=== PATIENT | male | born 1990 | race Caucasian/White ===

== ENCOUNTER 2020-07-09 11:36 | Outpatient (REF) | payer OTHER, SELFPAY ==
--- NOTE | ~2020-07-09 | XR_ITS ---
EXAMINATION: BILATERAL FOOT X-RAY CLINICAL INFORMATION: Pain COMPARISON: Bilateral ankle x-rays August 2018 TECHNIQUE: 3 views each foot FINDINGS: Bone alignment is normal. No fracture or dislocation seen. There are bilateral talar beaks. No evidence of bony coalition is seen. There is also a small osteophyte projecting off the dorsal surface of navicular bone at the talar navicular joint. Joint spaces are otherwise normal. Soft tissues are normal. XR/XR foot LT min 3V IMPRESSION: Bilateral talar beaks. No evidence of bony coalition seen. There is clinical suspicion of fibrous coalition, this could be better evaluated with MRI.
--- NOTE | ~2020-07-09 | XR_ITS ---
EXAMINATION: BILATERAL FOOT X-RAY CLINICAL INFORMATION: Pain COMPARISON: Bilateral ankle x-rays August 2018 TECHNIQUE: 3 views each foot FINDINGS: Bone alignment is normal. No fracture or dislocation seen. There are bilateral talar beaks. No evidence of bony coalition is seen. There is also a small osteophyte projecting off the dorsal surface of navicular bone at the talar navicular joint. Joint spaces are otherwise normal. Soft tissues are normal. XR/XR foot RT min 3V IMPRESSION: Bilateral talar beaks. No evidence of bony coalition seen. There is clinical suspicion of fibrous coalition, this could be better evaluated with MRI.
== END 2020-07-09 11:37 | disposition home or self-care (01) ==
LOC: HO.LAB 11:36
PROVIDERS: PCP Internal Medicine; Visit Provider Internal Medicine
DX: G89.29 Other chronic pain (principal); M79.672 Pain in left foot; M79.671 Pain in right foot
CPT/HCPCS: 73630

== ENCOUNTER 2021-02-22 09:24 | Outpatient (AMB) | payer OTHER, SELFPAY ==
--- NOTE | 2021-02-22 09:21 | A.OFFPC_ITS ---
Intake Visit Reasons: Leg pain Child Care Assistant Required: No Accompanied by: Self / Same As Patient Allergies acetaminophen [ACETAMINOPHEN] Allergy (Unknown, Verified 08/20/23 15:14) PALPATATIONS azithromycin [AZITHROMYCIN] Allergy (Unknown, Verified 08/20/23 15:14) RASH LOBSTER Allergy (Unknown, Verified 08/20/23 15:14) RASH, swelling Medication List - Last Reconciled 02/22/21 by Mike Benito MD blood sugar diagnostic (FreeStyle Lite Strips) 1 strip miscellaneous DAILY docusate sodium 100 mg PO DAILY 30 days PRN famotidine 20 mg PO BID 30 days PRN fluticasone propionate 50 mcg/actuation 2 sprays intranasal DAILY 30 days PRN hydroxyzine HCl 25 mg PO TID PRN ibuprofen 600 mg PO Q8H PRN mometasone 0.1% 1 appl topical DAILY 30 days omeprazole 20 mg PO DAILY 30 days tramadol 50 mg PO 2-3 x a day PRN; partial refil upon request #75- 30 days zolpidem 10 mg PO BEDTIME 30 days PRN Tobacco use date assessed: 01/11/21 HPI Leg pain HPI Details Due to the COVID-19 pandemic, we are limiting [id number]-gr-dcpb visits to patients who have an absolute need for such visits Patient's follow up visit / consultation today is done over video conference ([email or web address]) - this is a TELEHEALTH visit Patient's current medications have been reviewed and verified with patient and/or caregiver/proxy and have been updated accordingly in the medication list Patient states that he feels okay Reports that the previous swelling of his legs and feet have improved a lot when he started cutting out salt/sodium from his diet and that his swelling are mostly resolved now Has also been able to lose some weight recently as he has been eating a lot more vegetables and eliminating fried foods from his diet - weighed 248 pounds earlier today Is eating more yogurt lately and states that this has helped a lot with his b owels Denies any headaches or dizziness Denies any chest pains, no SOB although he has been coughing on and off lately - cough is mostly dry; denies any sore throat No nausea/vomiting, no abdominal pain Needs his Mometasone cream Rx refilled Would also like to get some Rx for his recurrent cough and increased phlegm lately States that he went to get labs done at [facility] a couple of months ago but no r esults are noted in his chart (last ones were in 2019) - advised that his previous lab orders are still in his chart and if he did have some labs done a couple of months ago, we do not know where the results are or which lab orders were used for that particular lab draw [facility] Medical History (Updated 08/20/23 @ 15:57 by Mike Benito MD) Morbid obesity with BMI of 45.0-49.9, adult Obesity (BMI 30-39.9) Insomnia Allergic rhinitis GERD without esophagitis Benign essential hypertension Smoker Bipolar disorder Chronic pain of both feet Chronic hip pain Anxiety Surgical History History of tooth extraction History of hip surgery History of hemorrhoidectomy Family History Father Diabetes Mother Chronic mental illness Maternal Grandmother Diabetes Maternal Grandfather Diabetes Maternal Aunt Diabetes Sister In good health Other Mental health problem Social History Housing: House Alcohol intake: never Patient Tobacco Use Status: Current someday Tobacco user Tobacco use type: Cigarette Cigarette Packs Per Day: 0.25 Cigarettes Per Day: 2 e-Cigarette/Vaping Use: Never Used Second Hand Smoke Exposure: Yes service: No Current occupational status: employed Cognitive needs: No Hearing needs: No Vision needs: No Questionnaire Thrive Questionnaire Date Thrive assessed: 01/11/21 DAVID-7 AMB Questionnaire DAVID-7 Date DAVID - 7 assessed: 01/11/21 Source: Developed by Drs. Wilton Martinez, Kenyetta Ocampo, Mateo Jaramillo and colleagues, with an educational esther from [employer]. Review of Systems Const Denies chills, Reports fatigue, Denies fever(s) and Denies headache(s) ENT Denies headache(s), Denies odynophagia, Denies sinus pain and Denies sore throat Card Denies chest pain, Denies palpitations and Denies dyspnea Resp Denies chest congestion, Reports cough (recurrent, non-productive) and Denies dyspnea GI Denies abdominal pain, Denies constipation, Denies heartburn, Denies diarrhea and Denies odynophagia Denies dysuria and Denies nocturia Musc Reports arthralgias (both hips) and Denies joint swelling Skin/Breast Reports rash (scattered, on and off, itchy at times) Neuro Denies headache(s) Endo Reports fatigue and Denies palpitations Physical exam (Primary Care) Vital Signs: Physical examination is not performed as visit / consultation today is done over videoconference - Telehealth visit All physical findings indicated here, if present, are as per patient's and / or caregivers / proxy's report and visual inspection over videoconference, if appropriate or applicable Tobacco/Smoking Status: Tobacco use Status Tobacco use date assessed 01/11/21 02/22/21 09:24 Patient Tobacco Use Status Current everyday Tobacco 02/22/21 09:24 Thrive Assessment: Date of Thrive Assessment Date Thrive assessed 01/11/21 02/22/21 09:24 Telehealth Telehealth Location of provider rendering services: practice address Location of patient: address on file Patient Identification confirmed using: Name, : Yes Telehealth method: video Patient verbally consented to treatment: No Patient verbally consented to billing insurance company: No Patient informed of any privacy concerns related to visit: No Time spent with patient (mins): 24 Assessment and Plan Assessment & Plan (1) Benign essential hypertension: Code(s): I10 - Essential (primary) hypertension Plan: Reinforced low sodium diet - goal is systolic BP of at least 120 to 130 mm Instructed to continue monitoring his BP regularly Patient is also instructed to try getting his previously ordered labs (updated) done TIERNEY (2) GERD without esophagitis: Code(s): K21.9 - Gastro-esophageal reflux disease without esophagitis Plan: Dietary restrictions reinforced Continue Omeprazole 20 mg QD and Famotidine 20 mg BID PRN (3) Allergic rhinitis: Code(s): J30.9 - Allergic rhinitis, unspecified Qualifiers: Allergic rhinitis seasonality: unspecified Allergic rhinitis trigger: unspecified Qualified Code(s): J30.9 - Allergic rhinitis, unspecified Plan: Continue Fluticasone 50 mcg nasal spray QD PRN (4) Multiple episodes of hypoglycemia: Code(s): E16.2 - Hypoglycemia, unspecified Plan: Are most likely due to his psychiatric Rx although this seems to have subsided somewhat lately - the atypical antipsychotics do have hypoglycemia as known side effects and patient should discuss potential Rx changes with his psychiatrist if f symptoms persist (5) Chronic hip pain: Comment: S/P surgical pinning of both hips with 65 mm 7.0 Senthes cannulated screws in 2005 Code(s): M25.559 - Pain in unspecified hip; G89.29 - Other chronic pain Qualifiers: Laterality: bilateral Qualified Code(s): M25.551 - Pain in right hip; M25.552 - Pain in left hip; G89.29 - Other chronic pain Plan: Continue Tramadol 50 mg TID PRN and Ibuprofen 600 mg q 8 hours PRN for pain Follow up with orthopedics as scheduled (6) Rash: Code(s): R21 - Rash and other nonspecific skin eruption Plan: Will start him for now on Mometasone 0.1% cream QD PRN (7) Lymphedema: Code(s): I89.0 - Lymphedema, not elsewhere classified Plan: This appears to have improved lately since he started cutting out all salt from his diet - he is instructed to continue on low salt/sodium diet and elevate his legs and feet as often as he can throughout the day (8) Recurrent nonproductive cough: Code(s): R05.8 - Other specified cough Plan: Advised that this is likely related to his smoking Will start him for now on Mucinex DM Q 12 hours PRN May need to get chest x-rays done if his recurrent cough persists (9) Insomnia: Code(s): G47.00 - Insomnia, unspecified Qualifiers: Insomnia type: unspecified Qualified Code(s): G47.00 - Insomnia, unspecified Plan: Sleep hygiene reinforced Continue Zolpidem 10 mg Q HS PRN (10) Anxiety: Code(s): F41.9 - Anxiety disorder, unspecified Plan: Continue Hydroxyzine 25 mg TID PRN (11) Bipolar disorder: Code(s): F31.9 - Bipolar disorder, unspecified Qualifiers: Active/Remission status: currently active Current bipolar episode type: mixed Current episode severity: unspecified Qualified Code(s): F31.60 - Bipolar disorder, current episode mixed, unspecified Plan: Continue Risperidone 1 mg Q HS Follow up with psychiatry as scheduled (12) Smoker: Code(s): F17.200 - Nicotine dependence, unspecified, uncomplicated Plan: Counseled agaion on smoking cessation (13) Morbid obesity with BMI of 45.0-49.9, adult: Code(s): E66.01 - Morbid (severe) obesity due to excess calories; Z68.42 - Body mass index [BMI] 45.0-49.9, adult Plan: Reinforced diet/exercise as tolerated/lose weight Plan Follow up in 3 months Medications: New dextromethorphan-guaifenesin 30-600 mg (Mucinex DM) 1 tab PO Q12H PRN 60 tabs 1RF cough 30 days Refilled mometasone 0.1% 1 appl topical DAILY 45 grams 2RF 30 days Coding Level of Care Code Tele Est Pt Level 4 (67387) Diagnoses Benign essential hypertension I10 GERD without esophagitis K21.9 Allergic rhinitis, unspecified seasonality, unspecified trigger J30.9 Allergic rhinitis seasonality: unspecified Allergic rhinitis trigger: unspecified Multiple episodes of hypoglycemia E16.2 Chronic pain of both hips M25.551; M25.552; G89.29 Laterality: bilateral Rash R21 Lymphedema I89.0 Recurrent nonproductive cough R05.8 Insomnia, unspecified type G47.00 Insomnia type: unspecified Anxiety F41.9 Bipolar affective disorder, current episode mixed, current episode severity unspecified F31.60 Active/Remission status: currently active Current bipolar episode type: mixed Current episode severity: unspecified Smoker F17.200 Morbid obesity with BMI of 45.0-49.9, adult E66.01; Z68.42
== END 2021-02-22 12:42 ==
LOC: HO.HMGH 09:24
PROVIDERS: PCP Internal Medicine; Visit Provider Internal Medicine
DX: I10 Essential (primary) hypertension (principal); F31.60 Bipolar disorder, current episode mixed, unspecified; E66.01 Morbid (severe) obesity due to excess calories; Z68.42 Body mass index [BMI] 45.0-49.9, adult; K21.9 Gastro-esophageal reflux disease without esophagitis; J30.9 Allergic rhinitis, unspecified; E16.2 Hypoglycemia, unspecified; M25.551 Pain in right hip; M25.552 Pain in left hip; G89.29 Other chronic pain; R21 Rash and other nonspecific skin eruption; I89.0 Lymphedema, not elsewhere classified
CPT/HCPCS: 99499

== ENCOUNTER 2023-08-20 14:26 | Outpatient (AMB) | payer OTHER, SELFPAY ==
--- NOTE | 2023-08-20 14:42 | A.OFFPC_ITS ---
Vital Signs 08/20/23 14:45 Height 5 ft 7 in Weight 290 lb 8 oz BMI 45.5 BP 130/72 Blood Pressure Location Lt brachial Position Sitting Pulse 70 Pulse Source Pulse Oximeter Pulse Oximetry (%) 98 Oxygen Delivery Method Room Air Intake Visit Reasons: P.E Intake Note: Patient is here today for a physical. Line Service Attendant Required: No Lacquerer: Not Required per policy Accompanied by: Self / Same As Patient Allergies acetaminophen [ACETAMINOPHEN] Allergy (Unknown, Verified 08/20/23 15:14) PALPATATIONS azithromycin [AZITHROMYCIN] Allergy (Unknown, Verified 08/20/23 15:14) RASH LOBSTER Allergy (Unknown, Verified 08/20/23 15:14) RASH, swelling Medication List - Last Reconciled 08/20/23 by Mike Benito MD blood sugar diagnostic (FreeStyle Lite Strips) 1 strip miscellaneous DAILY dextromethorphan-guaifenesin 30-600 mg (Mucinex DM) 1 tab PO Q12H PRN 30 days docusate sodium 100 mg PO DAILY PRN 90 days famotidine 20 mg PO BID PRN 90 days fluticasone propionate 50 mcg/actuation 2 sprays intranasal DAILY PRN 30 days hydroxyzine HCl 25 mg PO TID PRN ibuprofen 600 mg PO Q8H PRN 30 days mometasone 0.1% 1 appl topical DAILY 30 days omeprazole 20 mg PO DAILY 90 days tramadol 50 mg PO 2-3 x a day PRN; partial refil upon request #75- 30 days zolpidem 10 mg PO BEDTIME PRN 30 days Tobacco use date assessed: 08/20/23 Dental Screening Dental Screen Date: 08/20/23 Did you have a dental visit in the last 12 months?: No Did you have a dental problem in the last 6 months where you did not have access to dental care?: No Was dental information given to patient?: Patient has dentist HPI P.E HPI Details Patient comes in today for his annual physical examination - has not been back in about 2 years (July 2021) States that he continues to experience recurrent swelling of both of his ankles frequently Notes that the swelling seems to occur only over the lateral aspect of both ankles and relates increased pain when the swelling is present States that he feels okay otherwise and states that he has changed his diet a lot over the past year or so and feels that he is starting to lose weight as his clothes and pants have all gotten looser lately Relates increased pain over both hips lately - denies any recent injury or trauma to his hips He denies any headaches or dizziness Denies any chest pains, no SOB No nausea/vomiting, no abdominal pain No change in bowel habits noted He denies any acute urinary symptoms States that he will need ALL of his Rx, including his Tramadol and Zolpidem, refilled [facility] Medical History (Updated 08/20/23 @ 15:50 by Mike Benito MD) Morbid obesity with BMI of 45.0-49.9, adult Obesity (BMI 30-39.9) Insomnia Allergic rhinitis GERD without esophagitis Benign essential hypertension Smoker Bipolar disorder Chronic pain of both feet Chronic hip pain Anxiety Surgical History History of tooth extraction History of hip surgery History of hemorrhoidectomy Family History Father Diabetes Mother Chronic mental illness Maternal Grandmother Diabetes Maternal Grandfather Diabetes Maternal Aunt Diabetes Sister In good health Other Mental health problem Social History Housing: House Alcohol intake: never Patient Tobacco Use Status: Current someday Tobacco user Tobacco use type: Cigarette Cigarette Packs Per Day: 0.25 Cigarettes Per Day: 2 e-Cigarette/Vaping Use: Never Used Second Hand Smoke Exposure: Yes service: No Current occupational status: employed Cognitive needs: No Hearing needs: No Vision needs: No Questionnaire PHQ-9 Over the last 2 weeks, how often have you been bothered by any of the following problems? 1. Little interest or pleasure in doing things: not at all 2. Feeling down, depressed, or hopeless: not at all 3. Trouble falling or staying asleep, or sleeping too much: not at all 4. Feeling tired or having little energy: not at all 5. Poor appetite or overeating: not at all 6. Feeling bad about yourself - or that you are a failure or have let yourself or your family down: not at all 7. Trouble concentrating on things, such as reading the newspaper or watching television: not at all 8. Moving or speaking so slowly that other people could have noticed. Or the opposite - being so fidgety or restless that you have been moving around a lot more than usual: not at all 9. Thoughts that you would be better off or of hurting yourself in some way: not at all Total score: 0 Depression Screening Interpretation: Negative Depression Screening Done: Yes 71609 - PHQ-9 Billing: Yes Source: Developed by Drs. Wilton Martinez, Kenyetta Ocampo, Mateo Jaramillo and colleagues, with an educational esther from [employer]. Thrive Questionnaire Date Thrive assessed: 08/20/23 I am a: Patient What is your living situation today?: I have a steady place to live Within the past 12 months, did the food you bought not last and you didn't have the money to get more?: Never true Within the past 12 months, did you worry whether your food would run out before you got money to buy more?: Never true Do you have trouble paying for medicines?: No Do you have trouble getting transportation to medical appointments?: No Do you have trouble paying your heating and electricity bill?: No Do you have trouble taking care of your child, family member or friend?: No Do you have trouble with day-to-day activities such as bathing, preparing meals, shopping, managing finances, etc.?: No Are you currently unemployed and looking for a job?: No Are you interested in more education?: No Currently or been in a relationship where the following occur: no concerns r eported THRIVE Score: 0 AUDIT C Alcohol Use Questionnaire (AUDIT-C) 1. How often do you have a drink containing alcohol?: Never 3. How often do you have six or more drinks on one occasion?: Never Total Score: 0 Score Reviewed/Action Taken: Yes DAVID-7 AMB Questionnaire DAVID-7 Date DAVID - 7 assessed: 08/20/23 Feeling nervous, anxious, or on edge: 1 = Several days Not being able to stop or control worryin = Not at all Worrying too much about different things: 0 = Not at all Trouble relaxin = Not at all Being so restless that it is hard to sit still: 0 = Not at all Becoming easily annoyed or irritable: 0 = Not at all Feeling afraid as if something awful might happen: 0 = Not at all Total DAVID-7 score (0-4 normal; 5-9 mild; 10-14 moderate; 15-21 severe): 1 Source: Developed by Drs. Wilton Martinez, Kenyetta Ocampo, Mateo Jaramillo and colleagues, with an educational esther from [employer]. Review of Systems Const Denies chills, Reports difficulty sleeping (Zolpidem Rx helps with his sleep), Denies fatigue, Denies fever(s), Denies headache(s), Denies malaise and Denies weakness Eyes Denies blurry vision, Denies change in vision, Denies irritation and Denies itchy eyes ENT Denies dysphagia, Denies dizziness, Denies otalgia, Denies headache(s), Denies nasal congestion, Denies neck pain, Denies odynophagia and Denies sore throat Card Denies chest pain, Denies rapid heart rate, Denies irregular heart rhythm, Denies palpitations and Denies dyspnea Resp Denies chest congestion, Denies cough, Denies dyspnea and Denies wheezing GI Denies abdominal pain, Denies bloating, Denies constipation, Denies dysphagia, Denies heartburn, Denies diarrhea, Denies nausea, Denies odynophagia and Denies vomiting Denies hematuria, Denies difficulty urinating, Denies dysuria, Denies urinary frequency and Denies urinary urgency Musc Denies back pain, Reports arthralgias (both ankles but only when they are swollen; both hips lately), Reports joint swelling (recurrent over both ankles, mostly over the lateral aspect), Denies muscle weakness and Denies neck pain Skin/Breast Denies change in pigmentation, Denies lesions, Denies rash and Denies unusual bruising Neuro Denies dizziness, Denies headache(s), Denies paresthesias and Denies weakness Endo Denies fatigue and Denies palpitations Aller/Immun Denies itchy eyes and Denies wheezing Physical exam (Primary Care) Vital Signs: Last Vital Signs Pulse 70 08/20/23 14:45 BP 130/72 08/20/23 14:45 Pulse Ox 98 08/20/23 14:45 Oxygen Delivery Method Room Air 08/20/23 14:45 BMI result Body Mass Index 45.5 Tobacco/Smoking Status: Tobacco use Status Tobacco use date assessed 08/20/23 08/20/23 14:55 Patient Tobacco Use Status Current someday Tobacco 08/20/23 14:55 Tobacco use type Cigarette 08/20/23 14:55 e-Cigarette/Vaping Use Never Used 08/20/23 14:55 PHQ-9: PHQ-9 Score PHQ-9: Total score 0 08/20/23 14:55 Depression Screening Interpretation: Negative Thrive Assessment: Date of Thrive Assessment Date Thrive assessed 08/20/23 08/20/23 14:55 Currently or been in a relationship where the following occur: no concerns reported Const General: no acute distress, alert and awake Orientation/consciousness: patient oriented x3 HENMT Head: Yes normocephalic and Yes atraumatic Ears: external ears normal, TM's normal bilaterally and EAC's normal General nose exam: No nasal discharge present Face and sinus: Yes normal facial exam and Yes sinuses nontender Teeth and gingiva: dentition normal Throat: Yes posterior oropharynx normal and Yes tonsils normal (no TP congestion) Eyes Eyelids: Yes eyelids normal Conjunctivae: conjunctivae normal Pupils: Equal, round and reactive pupils present EOM: EOMs intact bilaterally Neck Neck: Yes no lymphadenopathy and Yes supple Thyroid: Thyroid normal Resp Auscultation: clear to auscultation bilaterally, no rales and no wheezes Cardio Rate: regular rate Rhythm: regular rhythm Heart sounds: no murmurs GI Palpation (GI): Soft to palpation, nontender and No hepatosplenomegaly present Auscultation: normal bowel sounds General: Yes no CVA tenderness Back/Spine/Pelvis Back: no CVA tenderness Thoracic/Lumbar Spine: thoracic and lumbar spine normal to inspection Skin Lesions: no lesions Rashes: no rashes Neuro General: patient oriented x3, moves all extremities, no focal motor deficits and CN's II-XI intact bilaterally Cranial nerves: Yes Equal, round and reactive pupils present Cognition (Neuro): normal cognition Gait exam (Neuro): Normal gait present Extrem General: Yes no clubbing, cyanosis or edema Right lower extremity: hip/thigh Details: tenderness Location: of the hip and ankle Details: no tenderness and no swelling Left lower extremity: hip/thigh Details: tenderness Location: of the hip and ankle Details: no tenderness and no swelling Assessment and Plan Assessment & Plan (1) Annual physical exam: Code(s): Z00.00 - Encounter for general adult medical examination without abnormal findings Plan: Check labs (2) Chronic hip pain: Comment: S/P surgical pinning of both hips with 65 mm 7.0 Senthes cannulated screws in 2005 Code(s): M25.559 - Pain in unspecified hip; G89.29 - Other chronic pain Qualifiers: Laterality: bilateral Qualified Code(s): M25.551 - Pain in right hip; M25.552 - Pain in left hip; G89.29 - Other chronic pain Plan: Will send for repeat x-rays of both hips for further evaluation/follow up Continue Tramadol 50 mg TID PRN and Ibuprofen 600 mg Q 8 hours PRN for pain Follow up with orthopedics as scheduled (3) Pain and swelling of ankle: Comment: bilateral Code(s): M25.579 - Pain in unspecified ankle and joints of unspecified foot; M25.473 - Effusion, unspecified ankle Qualifiers: Laterality: unspecified laterality Qualified Code(s): M25.579 - Pain in unspecified ankle and joints of unspecified foot; M25.473 - Effusion, unspecified ankle Plan: Will send for x-rays of both ankles for further evaluation Will also send for some labs for further evaluation (4) Elevated blood pressure reading: Code(s): R03.0 - Elevated blood-pressure reading, without diagnosis of hypertension Plan: Reinforced low sodium diet Patient is reminded to continue monitoring his blood pressure regularly - normal systolic BP is at 120 mm or less (5) GERD without esophagitis: Code(s): K21.9 - Gastro-esophageal reflux disease without esophagitis Plan: Dietary restrictions reinforced Continue Omeprazole 20 mg QD and Famotidine 20 mg BID PRN (6) Allergic rhinitis: Code(s): J30.9 - Allergic rhinitis, unspecified Qualifiers: Allergic rhinitis trigger: unspecified Allergic rhinitis seasonality: unspecified Qualified Code(s): J30.9 - Allergic rhinitis, unspecified Plan: Continue Fluticasone 50 mcg nasal spray QD PRN (7) Varicose veins of bilateral lower extremities with pain: Code(s): I83.813 - Varicose veins of bilateral lower extremities with pain Plan: Follow up with vascular surgery as scheduled (8) Insomnia: Code(s): G47.00 - Insomnia, unspecified Qualifiers: Insomnia type: unspecified Qualified Code(s): G47.00 - Insomnia, unspecified Plan: Sleep hygiene reinforced Continue Zolpidem 10 mg Q HS PRN (9) Anxiety: Code(s): F41.9 - Anxiety disorder, unspecified Plan: Continue Hydroxyzine 25 mg TID PRN (10) Bipolar disorder: Code(s): F31.9 - Bipolar disorder, unspecified Qualifiers: Active/Remission status: currently active Current bipolar episode type: mixed Current episode severity: unspecified Qualified Code(s): F31.60 - Bipolar disorder, current episode mixed, unspecified Plan: He was on Risperidone 1 mg Q HS in the past but appears to be off the Rx at this time Follow up with psychiatry as scheduled (11) Smoker: Code(s): F17.200 - Nicotine dependence, unspecified, uncomplicated Plan: Counseled again on smoking cessation (12) Morbid obesity with BMI of 45.0-49.9, adult: Code(s): E66.01 - Morbid (severe) obesity due to excess calories; Z68.42 - Body mass index [BMI] 45.0-49.9, adult Plan: Reinforced diet/exercise as tolerated/lose weight Plan Follow up in 4 months Orders: Orders Complete Blood Count Auto Diff Today D64.9 - Anemia, unspecified, Z00.00 - En counter for general adult medical examination without abnormal findings TSH reflex Free T4 Today E78.00 - Pure hypercholesterolemia, unspecified, Z00.00 - Encounter for general adult medical examination without abnormal findings UA CC w/rflx Micro + Cult Today R30.0 - Dysuria, Z00.00 - Encounter for general adult medical examination without abnormal findings XR ankle LT min 3V Today M25.473 - Effusion, unspecified ankle, M25.579 - Pain in unspecified ankle and joints of unspecified foot B Type Natriuretic Peptide Today M25.473 - Effusion, unspecified ankle, M25.579 - Pain in unspecified ankle and joints of unspecified foot Comprehensive Rosine. Panel Fast Today E78.00 - Pure hypercholesterolemia, unspecified, Z00.00 - Encounter for general adult medical examination without abnormal findings Lipid Panel Today E78.00 - Pure hypercholesterolemia, unspecified, Z00.00 - Encounter for general adult medical examination without abnormal findings Erythrocyte Sedimentation Rate Today G89.29 - Other chronic pain, M79.671 - Pain in right foot, M79.672 - Pain in left foot, Z00.00 - Encounter for general adult medical examination without abnormal findings Hemoglobin A1c Today E11.9 - Type 2 diabetes mellitus without complications, Z00.00 - Encounter for general adult medical examination without abnormal findings Vitamin D 25-OH Total Today E55.9 - Vitamin D deficiency, unspecified, Z00.00 - Encounter for general adult medical examination without abnormal findings XR ankle RT min 3V Today M25.473 - Effusion, unspecified ankle, M25.579 - Pain in unspecified ankle and joints of unspecified foot XR hip LT min 2V Today M25.551 - Pain in right hip, M25.552 - Pain in left hip XR hip RT min 2V Today M25.551 - Pain in right hip, M25.552 - Pain in left hip C Reactive Protein Today M25.473 - Effusion, unspecified ankle, M25.579 - Pain in unspecified ankle and joints of unspecified foot Medications: Refilled zolpidem 10 mg PO BEDTIME 30 days PRN 30 tabs 0RF insomnia G47.00 - Insomnia, unspecified fluticasone propionate 50 mcg/actuation administer into each nostril 2 sprays intranasal DAILY 30 days PRN 16 grams 3RF allergy symptoms J30.9 - Allergic rhinitis, unspecified famotidine 20 mg PO BID 90 days PRN 180 tabs 3RF abdominal pain. GERD omeprazole 20 mg PO DAILY 90 days 90 caps 3RF K21.9 - Gastro-esophageal reflux disease without esophagitis tramadol 50 mg PO 2-3 x a day PRN; partial refil upon request #75- 30 days 75 tabs 0RF pain G89.29 - Other chronic pain, M25.551 - Pain in right hip, M25.552 - Pain in left hip, M79.671 - Pain in right foot, M79.672 - Pain in left foot mometasone 0.1% 1 appl topical DAILY 30 days 45 grams 2RF ibuprofen Take with food 600 mg PO Q8H 30 days PRN 90 tabs 2RF for pain G89.29 - Other chronic pain, M25.551 - Pain in right hip, M25.552 - Pain in left hip hydroxyzine HCl 25 mg PO TID PRN 90 tabs 3RF for itch docusate sodium 100 mg PO DAILY 90 days PRN 90 caps 3RF constipation blood sugar diagnostic (FreeStyle Lite Strips) 1 strip miscellaneous DAILY 100 ea 5RF dextromethorphan-guaifenesin 30-600 mg (Mucinex DM) 1 tab PO Q12H 30 days PRN 60 tabs 0RF cough Coding Level of Care Code Est Pt Prev Care [id number]([id number]) Diagnoses Annual physical exam Z00.00 Chronic pain of both hips M25.551; M25.552; G89.29 Laterality: bilateral Pain and swelling of ankle, unspecified laterality M25.579; M25.473 Laterality: unspecified laterality Elevated blood pressure reading R03.0 GERD without esophagitis K21.9 Allergic rhinitis, unspecified seasonality, unspecified trigger J30.9 Allergic rhinitis trigger: unspecified Allergic rhinitis seasonality: unspecified Varicose veins of bilateral lower extremities with pain I83.813 Insomnia, unspecified type G47.00 Insomnia type: unspecified Anxiety F41.9 Bipolar affective disorder, current episode mixed, current episode severity unspecified F31.60 Active/Remission status: currently active Current bipolar episode type: mixed Current episode severity: unspecified Smoker F17.200 Morbid obesity with BMI of 45.0-49.9, adult E66.01; Z68.42
[2023-08-20 14:45] VITALS: BP 130/72; PULSE 70; O2SAT 98; BMI 45.5
== END 2023-08-20 15:27 | disposition home or self-care (01) ==
PROVIDERS: PCP Internal Medicine; Visit Provider Internal Medicine
DX: Z00.00 Encounter for general adult medical examination without abnormal findings (principal); F31.60 Bipolar disorder, current episode mixed, unspecified; E66.01 Morbid (severe) obesity due to excess calories; Z68.42 Body mass index [BMI] 45.0-49.9, adult; M25.551 Pain in right hip; M25.552 Pain in left hip; G89.29 Other chronic pain; M25.471 Effusion, right ankle; R03.0 Elevated blood-pressure reading, without diagnosis of hypertension; K21.9 Gastro-esophageal reflux disease without esophagitis; J30.9 Allergic rhinitis, unspecified
CPT/HCPCS: 99395